=== PATIENT | female | born 1980 | race African-American/Black ===

== ENCOUNTER 2016-12-13 09:49 | Emergency (ER) | payer OTHER ==
[~2016-12-13] VITALS: Ht 167.6 cm; Wt 98.9 kg
[2016-12-13 09:59] VITALS: BP 126/86
[2016-12-13] MEDS ORDERED: IBUPROFEN 600600 M1 PO (10:08)
[2016-12-13] MEDS ORDERED: NORCO 5-325 TA1 EACH PO (10:08)
[2016-12-13] MEDS ORDERED: GENTAMICIN SU3 MG/ML OPHTHALMIC (10:08)
== END 2016-12-13 10:25 | disposition home or self-care (01) ==
LOC: ER 09:49
DX: S05.02XA Injury of conjunctiva and corneal abrasion without foreign body, left eye, initial encounter (principal); W50.0XXA Accidental hit or strike by another person, initial encounter; Y93.89 Activity, other specified; Y92.89 Other specified places as the place of occurrence of the external cause; Y99.8 Other external cause status